=== PATIENT | male | born 1950 | race Caucasian/White ===

== ENCOUNTER → 2023-09-22 08:18 | Outpatient (REF) | payer OTHER, SELFPAY ==
[2023-09-22 10:10] LABS: Hematocrit 43.4 % (39.0-52.0); Mean Corp Hgb Conc. 32.3 g/dL (33.0-37.0); Mean Corpuscular Hgb 28.6 pg (27.0-31.0); Mean Corpuscular Volume 88.6 fL (80.0-94.0); Mean Platelet Volume 11.2 fL (7.4-10.4); Platelet Count 152 10^3/uL (130-400); Red Cell Dist. Width 12.2 % (11.5-14.5); White Blood Cell Count 6.7 10^3/uL (4.8-10.8)
[2023-09-22 10:15] LABS: ALT (SGPT) 38 U/L (0-50); AST (SGOT) 33 U/L (17-59); Albumin 4.1 g/dl (3.5-5.0); Alkaline Phosphatase 50 U/L (38-126); Blood Urea Nitrogen 30 mg/dl (9-20); Calcium 9.6 mg/dl (8.4-10.2); Carbon Dioxide 28 mmol/L (22-30); Chloride 104 mmol/L (98-107); Glucose 124 mg/dl (70-99); Potassium 4.4 mmol/L (3.5-5.1); Sodium 140 mmol/L (135-145); Total Bilirubin 0.6 mg/dl (0.2-1.3); Total Protein 6.8 g/dl (6.3-8.2); eGFR > 60.00
[2023-09-22 10:26] LABS: C-Reactive Protein < 5.00 mg/L (0.0-10.00)
[2023-09-22 10:57] LABS: TSH Reflex To Free T4 1.82 uIU/ml (0.47-4.68)
[2023-09-22 11:10] LABS: Erythrocyte Sed Rate 15 mm/hour (0-20)
[2023-09-23 15:13] LABS: tTG IgA Antibody 5.8 EU/ml (0-19); tTG IgG Antibody 7.4 EU/ml (0-19)
[2023-09-24 06:00] LABS: IgA 240 mg/dl (70-400)
[2023-09-25] LABS: Endomysial IgA Antibody Titer <1:10 (<1:10)
== END ==
LOC: REG 08:18
PROVIDERS: ATTENDING PHYSICIAN Nurse Practitioner Family; FAMILY PHYSICIAN Family Medicine
DX: R19.7 Diarrhea, unspecified (principal)
CPT/HCPCS: 36415; 80053; 82784; 83516; 84443; 85027; 85652; 86140; 86231

== ENCOUNTER → 2023-09-23 12:32 | Outpatient (REF) | payer OTHER, SELFPAY | LOC: REG 12:32 | PROVIDERS: ATTENDING PHYSICIAN Nurse Practitioner Family; FAMILY PHYSICIAN Family Medicine | DX: R19.7 Diarrhea, unspecified (principal) | CPT/HCPCS: 82653; 82705; 83993; 87045; 87046; 87177; 87209; 87324; 87328; 87329; 87427; 87449; 89055 ==